=== PATIENT | female | born 1990 | race American Indian/Alaskan Native ===

== ENCOUNTER 2016-06-30 04:30 | Emergency (ER) | payer SELFPAY ==
[2016-06-30 05:55] LABS: Basophils % (Auto) 0.7 % (0.0-1.8); Eosinophils % (Auto) 5.1 % (0.0-4.3); Hematocrit 36.5 % (30.3-42.9); Mean Corpuscular HGB Conc 33 % (30-34); Mean Corpuscular Hemoglobin 29 pg (28-32); Mean Corpuscular Volume 88 fl (79-97); Platelet Count 336 K/mm3 (140-440); Red Blood Count 4.12 M/mm3 (3.65-5.03); Red Cell Distribution Width 14.5 % (13.2-15.2); White Blood Count 6.7 K/mm3 (4.5-11.0)
[2016-06-30 06:10] LABS: BUN/Creatinine Ratio 23.33; Blood Urea Nitrogen 14 mg/dL (7-17); Calcium 9.1 mg/dL (8.4-10.2); Carbon Dioxide 24 mmol/L (22-30); Chloride 101.5 mmol/L (98-107); Glucose 93 mg/dL (65-100); Sodium 140 mmol/L (137-145)
[2016-06-30 06:11] LABS: Anion Gap 19 mmol/L
[2016-06-30 06:55] VITALS: BP 116/72
--- NOTE | 2016-06-30 08:11 | XRay Report ---
LEFT ANKLE: The bones are well mineralized with normal bony contours and joint alignment. No fractures or destructive changes are noted and the adjacent soft tissues are normal. IMPRESSION: Normal study.
--- NOTE | 2016-07-02 14:16 | ED Elopement Review ---
ED Pt Elopement review - Results review Lab results: Laboratory Tests 06/30/16 06/30/16 06/30/16 05:41 05:41 08:35 WBC 6.7 RBC 4.12 Hgb 12.0 Hct 36.5 MCV 88 MCH 29 MCHC 33 RDW 14.5 Plt Count 336 Lymph % (Auto) 23.2 [place] % (Auto) 4.5 Eos % (Auto) 5.1 H Baso % (Auto) 0.7 Lymph # 1.6 [place] # 0.3 Eos # 0.3 Baso # 0.0 Seg Neutrophils % 66.5 Seg Neutrophils # 4.5 Sodium 140 Potassium 4.0 Chloride 101.5 Carbon Dioxide 24 Anion Gap 19 BUN 14 Creatinine 0.6 L Estimated GFR > 60 BUN/Creatinine Ratio 23.33 Glucose 93 Calcium 9.1 Troponin T < 0.010 < 0.010 06/30/16 11:50 WBC RBC Hgb Hct MCV MCH MCHC RDW Plt Count Lymph % (Auto) [place] % (Auto) Eos % (Auto) Baso % (Auto) Lymph # [place] # Eos # Baso # Seg Neutrophils % Seg Neutrophils # Sodium Potassium Chloride Carbon Dioxide Anion Gap BUN Creatinine Estimated GFR BUN/Creatinine Ratio Glucose Calcium Troponin T < 0.010 - Call Back decision Pt Call Back Decision: No action required
== END 2016-06-30 21:15 | disposition left against medical advice (07) ==
LOC: ED 04:30
DX: R06.02 Shortness of breath (principal); Z53.21 Procedure and treatment not carried out due to patient leaving prior to being seen by health care provider
CPT/HCPCS: 36415; 80048; 84484; 85025; 93005; 93010